=== PATIENT | female | born 1945 | race Caucasian/White ===

== ENCOUNTER 2016-11-12 13:56 | Emergency (ER) | payer MEDICARE, MEDICAID ==
--- NOTE | ~2016-11-12 | ER ---
PATIENT'S NAME: ESPERANZA ESCOBAR [facility] AGE: 71 Y [address] ROOM: [place] [address] LOCATION: [facility] ADMIT DATE: 11/12/2016 ER/Outpatient Report DISCHARGE DATE: 11/12/2016 FAMILY PHYSICIAN: Nicole Levi MD ATTENDING PHYSICIAN: Malika Moreira HISTORY OF PRESENT ILLNESS: The patient is a 71-year-old female, who presented with chief complaint of cough and "pink eye in both eyes along with mild sore throat." The patient stated this started four days ago. She was seen by her primary care yesterday and put on tobramycin eye drops and told her cough was likely allergies per patient report. She has not tried anything else [id number] for this. She reports her cough is mildly productive at times and describes that she feels this is settling in her chest. She denies any nausea or vomiting. She denies abdominal pain, headache, chest pain, or shortness of breath. The patient denies any fevers or chills. The eye issue started about the same time as her upper respiratory symptoms, but she denies any drainage other than tears. Denies any crusting. Denies pain with eye movement and denies blurred vision. The patient was told to be seen in the ER rather than go to dialysis today, so patient missed her dialysis this afternoon. ALLERGIES: THE PATIENT HAS KNOWN ALLERGIES TO AMPICILLIN. MEDICATIONS: Reviewed and updated. Please see documentation. PAST MEDICAL HISTORY: 1. Type 2 diabetes. 2. Atrial fibrillation. 3. End-stage renal disease, on dialysis. 4. Hypercholesterolemia. 5. History of colon cancer. PAST SURGICAL HISTORY: 1. She has had her gallbladder removed and a left fistula placed. 2. She has a history of hysterectomy as well as a colectomy. SOCIAL HISTORY: The patient has a previous history of smoking, but quit several years ago. She denies any drug use and denies alcohol use. REVIEW OF SYSTEMS: A complete and comprehensive review of systems was completed and is negative except as noted in the HPI above. PATIENT'S NAME: ESPERANZA ESCOBAR [facility] AGE: 71 Y [address] ROOM: [place] [address] LOCATION: [facility] ADMIT DATE: 11/12/2016 ER/Outpatient Report DISCHARGE DATE: 11/12/2016 FAMILY PHYSICIAN: Nicole Levi MD ATTENDING PHYSICIAN: Malika Moreira PHYSICAL EXAMINATION: VITAL SIGNS: Weight 115 kg. BP 109/91, pulse 81, respiratory rate is 20, temperature 95.1 TM, and O2 is 97% on room air. GENERAL: She is alert and oriented x4. No acute distress. HEENT: Eyes; there is no conjunctival injection, but some redness to the upper and lower lids primarily on the left. Mild on the right consistent with rubbing her eyes. There are tears present but no drainage. EOMI and PERRLA. TMs clear bilaterally. Nares patent without discharge. Mild mucous membrane bogginess. Mild posterior oropharynx erythema and edema. No exudates. CHEST: Clear to auscultation bilaterally. CARDIOVASCULAR: Regular rate and rhythm. No murmurs, rubs, or gallops. Pulses are strong and equal. ABDOMEN: Normal on inspection. Soft, nontender, and nondistended. EXTREMITIES: Nontender. She moves all extremities. No pedal edema. SKIN: Warm, dry, and intact. She is independent with her ADLs. Appears well- nourished and hydrated. LABORATORY DATA: CBC was normal showing a white count of 8.2, hemoglobin of 12.4, and platelets of 208,000. Comprehensive metabolic panel was abnormal with a BUN elevated at 60 and creatinine of 8.6, and glucose of 202, otherwise normal. Flu influenza was negative. Procalcitonin was 0.21. Chest x-ray was negative for any acute findings. Negative for pneumonia. IMPRESSION: Viral upper respiratory infection. Viral conjunctivitis. PLAN: The patient was instructed to stop the tobramycin eyedrops as they provided no relief within 2 days of use and this is very unlikely a bacterial conjunctivitis. She was given a prescription for Singulair to help with nighttime cough and Flonase to help with congestion. She was instructed to ensure adequate hydration and humidifier at night. Also instructed to do nasal saline rinses twice daily with distilled or filtered water and use Tylenol for pain. She was also instructed to not miss dialysis, and she states that she might be able to get in today still. The patient was instructed to follow up with her primary care physician on Thursday, Dr. Levi to ensure she is recovering well. The patient advised 7 to 10 days to get over a viral illness, but the cough can be present for up to 2 months. The patient was discharged to home in good condition. PATIENT'S NAME: ESPERANZA ESCOBAR [facility] AGE: 71 Y [address] ROOM: [place] [address] LOCATION: [facility] ADMIT DATE: 11/12/2016 ER/Outpatient Report DISCHARGE DATE: 11/12/2016 FAMILY PHYSICIAN: Nicole Levi MD ATTENDING PHYSICIAN: Malika Moreira MED STUDENT, MD RESIDENT FOR MALIKA MOREIRA MD SLL/modl /[id number] d: 11/12/162139 t: 11/17/16 0607, OUTPATIENT REPORT
--- NOTE | ~2016-11-12 | ER ---
PATIENT'S NAME: ESPERANZA ESCOBAR [facility] AGE: 71 Y [address] ROOM: [place] [address] LOCATION: [facility] ADMIT DATE: 11/12/2016 ER/Outpatient Report DISCHARGE DATE: 11/12/2016 FAMILY PHYSICIAN: Nicole Levi MD ATTENDING PHYSICIAN: Savage Simmons This patient is a 71-year-old female, who presented to the emergency room with cough, weakness sore throat, eye irritation, nasal congestion, and drainage. I saw the patient with Dr. Castillo, Resident, who is working here with me in the emergency department. See Dr. Castillo's dictation in regard to the ER visit of this patient. I agree with her assessment, impression, final diagnosis, and treatment plan. MD MARY REDDY/italol /[id number] d: 11/12/16 2257 t: 11/13/16 0612, OUTPATIENT REPORT
[~2016-11-12 13:56] MED LIST: ASPIRIN325 MG PO; BACTRIM SS 400/1 TAB PO; CALCIUM 600 +1 EAC6 PO; CLARITIN10 MG PO; COLACE100 MG PO; CORDARONE,PACE200 MG PO; COUMADIN ** IA5 MG PO; DIGESTIVE PROB250 MG PO; FLAGYL500 MG PO; GLUCOTROL5 MG PO; HEPARIN SO5000 UNIT2 SUB-Q; KAYEXALATE15 GM/60 M PO; KEFLEX500 MG PO; LEVEMIR FL100 UNIT/1 SUB-Q; MIDODRINE HCL10 MG PO; MIRALAX17 GM PO; NEPHRON FA (NEP1 TAB PO; NORCO 5-325 MG1 TAB PO; OMNICEF 300MG300 MG PO; PAXIL10 MG PO; PRILOSEC20 MG PO; PROLIA60 MG/ML SUB-Q; RENVELA800 MG PO; SENSIPAR60 MG PO; TOPROL XL25 MG PO; TYLENOL ARTHRI650 MG PO; TYLENOL EXTRA500 MG PO; ULTRAM50 MG PO; VANCOCIN HCL125 MG PO; VITAMIN D1000 UNI1 PO; VITAMIN D50000 UNIT PO; VOL-CARE RX TA1 EACH PO; ZOCOR20 MG PO; ZOFRAN ODT4 MG SL
[2016-11-12 14:38] LABS: BASOPHIL % 0.5 %; EOSINOPHIL # 0.1 K/uL (0.0-0.5); EOSINOPHIL % 1.6 %; HEMATOCRIT 39.3 % (33.0-46.0); HEMOGLOBIN 12.4 g/dL (10.0-15.0); IMMATURE GRANULOCYTE % 0.5 %; LYMPHOCYTE # 0.8 K/uL (0.8-4.0); MCH 30.6 pg (27.0-34.0); MCHC 31.6 gm/dL (32.0-36.5); MONOCYTE # 0.6 K/uL (0.0-1.0); MONOCYTE % 7.6 %; MPV 10.1 fl (9.4-12.4); NEUTROPHIL # (ANC) 6.6 K/uL (1.8-7.8); NEUTROPHIL % 79.8 %; NRBC % 0 /100WBC (0-0.00); RBC 4.05 M/uL (3.50-5.50); RDW-CV 13.6 % (11.9-14.6); WBC 8.2 K/uL (4.0-11.0)
[2016-11-12 14:40] LABS: PLATELET COUNT 208 K/uL (150-450)
[2016-11-12 15:13] LABS: ALBUMIN 3.1 gm/dL (3.5-5.0); CALCIUM 8.7 mg/dL (8.5-10.5); TOTAL BILIRUBIN 0.2 mg/dL (0.0-1.5)
[2016-11-12 15:17] LABS: CREATININE 8.6 mg/dL (0.5-1.1)
== END 2016-11-12 15:35 | disposition disaster alternative care site (69) ==
LOC: GMED 13:56
PROVIDERS: Emergency Medicine
DX: J06.9 Acute upper respiratory infection, unspecified (principal); B30.9 Viral conjunctivitis, unspecified; E11.22 Type 2 diabetes mellitus with diabetic chronic kidney disease; N18.6 End stage renal disease; E78.00 Pure hypercholesterolemia, unspecified; I48.91 Unspecified atrial fibrillation; Z79.01 Long term (current) use of anticoagulants; Z85.038 Personal history of other malignant neoplasm of large intestine; Z88.0 Allergy status to penicillin; Z87.19 Personal history of other diseases of the digestive system; Z87.891 Personal history of nicotine dependence; Z90.710 Acquired absence of both cervix and uterus; Z79.899 Other long term (current) drug therapy

== ENCOUNTER 2017-01-26 12:07 | Emergency (ER) | payer MEDICARE, MEDICAID ==
--- NOTE | ~2017-01-26 | ER ---
[facility] 72 Y [address] ROOM: [place] [address] LOCATION: ED ADMIT DATE: 01/26/2017 ER/Outpatient Report DISCHARGE DATE: 01/26/2017 FAMILY PHYSICIAN: Nicole Levi MD ATTENDING PHYSICIAN: Cynthia Tamez Time of Arrival: 1207 hours. Time of Evaluation: 1208 hours. IDENTIFICATION: A 72-year-old female. CHIEF COMPLAINT: Shortness of breath. HISTORY OF PRESENT ILLNESS: The patient is a 72-year-old female who has been short of breath for 1 week. She states worse with activity. She does have trouble getting a deep breath and she has felt dizzy at times. She has an occasional dry cough. No fever or chills. She is an end-stage renal dialysis patient and gets dialyzed on Thursday, Thursday, Thursday and is scheduled for dialysis at 2 o'clock today. ALLERGIES: AMPICILLIN. CURRENT MEDICATIONS: 1. Levemir 8 units at bedtime. 2. Coumadin 5 mg daily. 3. Loratadine 10 mg daily. 4. Vitamin D3 1000 international units daily. 5. Amiodarone 200 mg daily. 6. Paxil 10 mg daily. 7. Prilosec 20 mg daily. 8. Colace 1 mg b.i.d. 9. Zocor 100 mg at bedtime. 10. Tylenol 650 p.r.n. 11. Zofran p.r.n. PAST MEDICAL HISTORY: 1. Diabetes mellitus, insulin requiring. 2. End-stage renal disease, on hemodialysis. 3. Hypertension. 4. History of DVT, on chronic anticoagulation. 5. Atrial fibrillation, on chronic anticoagulation. 6. Dyslipidemia. PATIENT'S NAME: LUZ, [facility] AGE: 72 Y [address] ROOM: [place] [address] LOCATION: ED ADMIT DATE: 01/26/2017 ER/Outpatient Report DISCHARGE DATE: 01/26/2017 FAMILY PHYSICIAN: Nicole Levi MD ATTENDING PHYSICIAN: Cynthia Tamez 7. Congestive heart failure. 8. Sleep apnea on CPAP. 9. Arthritis. 10. Gastroesophageal reflux disease. 11. Hemorrhoids. 12. Colon cancer. 13. Diarrhea. PAST SURGICAL HISTORY: Torn meniscus right knee, bowel resection with hysterectomy, laparoscopic cholecystectomy, ERCP, and left arm fistula. FAMILY HISTORY: Mother with diabetes. Father with heart disease. Brother had malignant brain tumor and another brother with diabetes. SOCIAL HISTORY: The patient lives in [place]. She is retired. Tobacco use, denies. Alcohol use, denies. Drug use, denies. REVIEW OF SYSTEMS: All systems reviewed and negative other than what is noted in the HPI. PHYSICAL EXAMINATION: VITAL SIGNS: Height 5 feet 6 inches, weight 114.1 kg, blood pressure 178/76, pulse 93, respirations 16, temperature 97.2, and saturations 95% on room air. GENERAL: A 72-year-old female, in no acute distress. HEENT: Head: Normocephalic, atraumatic. Eyes: Pupils equal and reactive to light and accommodation. Extraocular movements intact. TMs not visualized. Nose: Mucosa pink, no lesions. Mouth: No lesions. Pharynx benign. NECK: Supple. No lymphadenopathy. LUNGS: Clear to auscultation. Breath sounds are equal. HEART: Regular rate and rhythm. No murmur, rub, or gallop. ABDOMEN: Bowel sounds present. Soft, nondistended, nontender. SKIN: [place], warm, and dry. No lesions or rashes noted. NEURO: No focal deficit. EXTREMITIES: Lower extremity edema, 1 to 2+. No calf tenderness. LABORATORY DATA AND X-RAYS: An IV was initiated. Labs were obtained. EKG sinus rhythm at 73 beats per minute. No acute ST elevation or depression. She does have a first-degree AV block. Hemoglobin 12.7, hematocrit 39.8, platelets 236, white count 7.3 with normal differential. INR 3.55. Sodium 140, potassium 4.7, chloride 105, CO2 of 24, BUN 60, creatinine 8.1, blood sugar 189. Liver enzymes normal. Magnesium 2.4, CPK 54, CK-MB 0.5. Troponin I less than 0.040. D-dimer 0.30. PATIENT'S NAME: ESPERANZA ESCOBAR [facility] AGE: 72 Y [address] ROOM: [place] [address] LOCATION: [facility] ADMIT DATE: 01/26/2017 ER/Outpatient Report DISCHARGE DATE: 01/26/2017 FAMILY PHYSICIAN: Nicole Levi MD ATTENDING PHYSICIAN: Cynthia Tamez ProBNP 9601. No previous proBNP available for comparison. Chest x-ray 1 view, no acute process pending Radiology over-read. IMPRESSION: 1. Shortness of breath. 2. Congestive heart failure with the elevated proBNP. 3. End-stage renal disease, on dialysis. 4. Elevated INR. PLAN: Okay to discharge. The patient will go to dialysis today. She will follow up with Dr. Levi regarding her INR. She will take half tablet of Coumadin tonight, then resume her usual dose and follow up with Dr. Levi for recheck. The patient understands and agrees, and all questions have been answered. CYNTHIA TAMEZ MD CAR/modl /[id number] d: 01/26/172201 t: 01/27/17 0612, OUTPATIENT REPORT
[2017-01-26 12:46] LABS: BASOPHIL # 0.1 K/uL (0.0-0.2); BASOPHIL % 0.7 %; EOSINOPHIL # 0.3 K/uL (0.0-0.5); EOSINOPHIL % 4.3 %; HEMATOCRIT 39.8 % (33.0-46.0); HEMOGLOBIN 12.7 g/dL (10.0-15.0); IMMATURE GRANULOCYTE % 0.3 %; LYMPHOCYTE # 0.7 K/uL (0.8-4.0); LYMPHOCYTE % 9.3 %; MCH 31.6 pg (27.0-34.0); MCHC 31.9 gm/dL (32.0-36.5); MONOCYTE # 0.5 K/uL (0.0-1.0); MONOCYTE % 7.4 %; MPV 10.2 fl (9.4-12.4); NEUTROPHIL # (ANC) 5.7 K/uL (1.8-7.8); NRBC % 0 /100WBC (0-0.00); PLATELET COUNT 236 K/uL (150-450); RBC 4.02 M/uL (3.50-5.50); RDW-CV 14.1 % (11.9-14.6); WBC 7.3 K/uL (4.0-11.0)
[2017-01-26 12:53] LABS: INR - (THERAPEUTIC) 3.55 (0.92-1.07); PROTIME 37.8 SECONDS (9.8-11.4); PTT 53 SECONDS (25-32)
[2017-01-26 13:02] LABS: ALBUMIN 2.9 gm/dL (3.5-5.0); ALK PHOS 96 IU/L (33-138); ALT 19 IU/L (12-78); ANION GAP 15.7 (10.0-19.0); AST 15 IU/L (10-40); CHLORIDE 105 mMol/L (96-110); CO2 24 mMol/L (22-32); CPK 54 IU/L (21-215); MAGNESIUM 2.4 mg/dL (1.8-2.6); POTASSIUM 4.7 mMol/L (3.7-5.1); SODIUM 140 mMol/L (135-145); TOTAL PROTEIN 6.8 g/dL (6.0-8.4)
[2017-01-26 13:07] LABS: BLOOD UREA NITROGEN 60 mg/dL (6-24); CALCIUM 6.3 mg/dL (8.5-10.5); CREATININE 8.1 mg/dL (0.5-1.1); ESTIMATED GFR (MDRD EQUATION) 5; TOTAL BILIRUBIN 0.3 mg/dL (0.0-1.5)
== END 2017-01-26 14:00 | disposition disaster alternative care site (69) ==
LOC: GMED 12:07
PROVIDERS: Family Medicine
DX: I13.2 Hypertensive heart and chronic kidney disease with heart failure and with stage 5 chronic kidney disease, or end stage renal disease (principal); I50.9 Heart failure, unspecified; E11.22 Type 2 diabetes mellitus with diabetic chronic kidney disease; N18.6 End stage renal disease; R79.1 Abnormal coagulation profile; Z99.2 Dependence on renal dialysis; R79.89 Other specified abnormal findings of blood chemistry; K21.9 Gastro-esophageal reflux disease without esophagitis; M19.90 Unspecified osteoarthritis, unspecified site; I48.91 Unspecified atrial fibrillation; G47.30 Sleep apnea, unspecified; E78.5 Hyperlipidemia, unspecified; Z85.038 Personal history of other malignant neoplasm of large intestine; Z90.49 Acquired absence of other specified parts of digestive tract; Z86.718 Personal history of other venous thrombosis and embolism; Z98.890 Other specified postprocedural states; Z90.710 Acquired absence of both cervix and uterus; Z79.4 Long term (current) use of insulin; Z79.01 Long term (current) use of anticoagulants; Z88.1 Allergy status to other antibiotic agents